=== PATIENT | female | born 1930 | race Caucasian/White ===

== ENCOUNTER → 2016-08-31 | Outpatient (CLI) | payer MEDICARE, OTHER ==
[~2016-08-31] MED LIST: ACTONEL PO; ADVAIR 1001 DISK W/D PO; ALTACE PO; ASPIRIN PO; CALCIUM 500 + D1 TAB PO; CALCIUM500 M1 PO; COREG3.125 MG PO; HYDROCHLOROTHIA25 MG PO; MULTI-VITAMIN1 EAC1 PO; OCUVITE TABLET1 TAB PO; OMEGA-31000 M1 PO; PRESERVISION1 EA PO; PROLIA60 MG/1 ML SQ; RED YEAST RICE600 MG PO; SYNTHROID PO; VITAMIN D1000 UNI1 PO
== END | disposition home or self-care (01) ==
LOC: CSSDAY 08-24 10:00
DX: M81.0 Age-related osteoporosis without current pathological fracture (principal)
CPT/HCPCS: 96372; J0897